=== PATIENT | female | born 1955 | race Caucasian/White ===

== ENCOUNTER 2017-04-04 22:44 | Emergency (ER) | payer OTHER ==
[~2017-04-04] VITALS: Ht 152.4 cm; Wt 74.4 kg
[~2017-04-04 22:44] MED LIST: ACETAMINOPHEN; ADVAIR 2501 DISK W/D INH; ALBUTEROL17 GM; ALBUTEROL17 GM INH; AMARYL PO; AMBIEN10 MG PO; AMITIZA24 MCG PO; ASPIRIN81 MG PEG; ATENOLOL PO; ATENOLOL50 MG PO; ATIVAN PO; ATIVAN0.5 M1 PO; AVALOX; AVELOX400 MG PO; BENADRYL PO; BENADRYL25 M1 PO; BENADRYL50 MG/M1 PEG; BENZTROPINE PEG; CLEOCIN PO; CLOTRIMAZOLE TROCHE PO; COLISTIMETHATE150 M1 IV; CYANOCOBAL1000 MCG/M INJ; CYMBALTA PO; DIAZEPAM PO; DILAUDID; DILAUDID PAIN PUMP; DOPAMINE; DOXYCYCLINE MO100 MG PO; DURAGESIC1 EACH TD; ERYTHROCIN STE500 M1 PO; FERROUS SULFATE PO; FLEXERIL10 M1 PO; FLONASE 0.05% N16 GM; FLOVENT DISKU250 MCG; GABAPENTIN300 MG/6 M PEG; HALOPERIDOL2 MG PEG; HEPARIN SO5000 UNIT3 IJ; HYCODAN60 ML 5MG/ DOB; HYDROCODON-ACE1 EAC5 PO; IPRATR-ALBUTEROL3 ML IH; IRON1 TA1 PO; IRON325 ( 651 PO; KETEK400 MG PO; KLONOPIN PO; LACRI-LUBE NP OI1 UD; LASIX PO; LEVAQUIN PO; LORAZEPAM1 MG PEG; LORTAB 7.5-5001 TAB PO; LOTREL 5-20 MG1 CAP PO; LOTREL PO; MAPAP650 MG/20. PEG; MEDROL4 MG PO; MEDROL4 MG/DOSE- PO; MERREM500 MG IV; METOPROLOL SUCC25 MG PEG; MS CONTIN PO; NASONEX17 GM; NORCO 10-325 TA1 TAB PO; NORCO 10/325 TA1 TAB PO; NORCO 7.5/325 T1 TAB PO; NORCO1 TAB 10/3 DOB; NORCO1 TAB 10/3 PO; NOREPINEPHRINE; ONDANSETRON4 MG/5 ML PEG; OPANA ER30 MG PO; OPANA PO; OXAZEPAM PO; OXYGEN INH; PANTOPRAZOLE SO40 MG PEG; PAXIL; PAXIL PO; PAXIL10 MG PO; PAXIL10 MG/5 ML PEG; PAXIL40 MG PO; PERFOROMIS20 MCG/2 M; PHENERGAN PO; PHENERGAN25 MG PO; POTASSIUM CHLO10 MEQ PO; POTASSIUM20 MEQ/11 PEG; PREDNISONE PO; PROAIR HFA8.5 GM IH; RISPERDAL1 M1 PO; ROBAXIN PO; SERAX30 MG PO; SINGULAIR; SODIUM CHLORID100 ML IV; SYMBICORT INH; TENORMIN25 M1 PO; TENORMIN50 MG PO; TUSSIN MAX15 MG/5 M1 PO; VANCOMYCIN1.25 GM/21 IV; VITAMIN D1000 UNI1 PO; ZITHROMAX PO; [UNRECOGNIZED DRUG - CODE]; [UNRECOGNIZED DRUG - OTHER] PEG; [UNRECOGNIZED DRUG - OTHER] PO; [UNRECOGNIZED DRUG - OTHER] PO; [UNRECOGNIZED DRUG - REMARK]
[2017-04-05 01:31] LABS: BASOPHIL# 0.1 X10e3 (0-0.3); BASOPHIL% 0.8 % (0-2.5); DIFF IND NO; EOSINOPHIL# 0.4 X10e3 (0-0.7); EOSINOPHIL% 4.9 % (0.0-7.0); HEMATOCRIT 32.7 % (35.0-45.0); HEMOGLOBIN 11.4 gm/dL (12.0-16.0); LYMPHOCYTE# 1.9 X10e3 (1.0-3.5); LYMPHOCYTE% 25.4 % (17.0-45.0); MEAN CELL VOLUME 93.5 FL (83-96); MEAN CORPUSCULAR HEMOGLOBIN 32.6 PG (28-34); MEAN CORPUSCULAR HGB CONC 34.8 g/dL (30-36); MEAN PLATELET VOLUME 8.1 FL (6.5-11.5); MONOCYTE# 0.5 X10e3 (0-1.0); NEUTROPHIL# 4.8 X10e3 (1.5-7.1); NEUTROPHIL% 61.9 % (40-75); PLATELET COUNT 198 X10e3 (140-420); RED CELL DISTRIBUTION WIDTH 13.1 % (11.0-15.5); WHITE BLOOD COUNT 7.7 X10e3 (4.0-10.5)
[2017-04-05 01:49] LABS: BILIRUBIN, DIRECT 0.1 mg/dL (0.0-0.2); BILIRUBIN,INDIRECT 0.5 mg/dL (0.0-0.9); BILIRUBIN,TOTAL 0.6 mg/dL (0.2-2.0); BUN/CREATININE RATIO 18.23; CALCIUM SERUM 9.1 mg/dL (8.4-10.2); CREATININE SERUM 1.7 mg/dL (0.6-1.4); GLOM FILT RATE Estimated 32.2 mL/min (>60); POTASSIUM 4.3 mmol/L (3.5-5.1); PROTEIN TOTAL SERUM 6.7 g/dL (6.0-8.3)
[2017-04-05 03:13] LABS: BF CRYSTAL EXAM NO CRYSTALS SEEN; BF TOTAL NUCLEATED CELL COUNT 1510 CMM (0-100); BODY FLUID APPEARANCE BLOODY; BODY FLUID RBC 1641534 CMM; BODY FLUID SOURCE SYNOVIAL
== END 2017-04-05 03:49 | disposition home or self-care (01) ==
LOC: CED 22:44
PROVIDERS: Physician Assistant
DX: M25.462 Effusion, left knee (principal); Z88.2 Allergy status to sulfonamides; Z88.1 Allergy status to other antibiotic agents; Z88.8 Allergy status to other drugs, medicaments and biological substances; W06.XXXA Fall from bed, initial encounter; Y92.231 Patient bathroom in hospital as the place of occurrence of the external cause
CPT/HCPCS: 20610; 36415; 80048; 80076; 82945; 84157; 85025; 87070; 87205; 89051; 89060; 99284

== ENCOUNTER → 2017-04-17 | Outpatient (CLI) | payer OTHER ==
--- NOTE | ~2017-04-17 | CT101 ---
[facility] A Service of [facility] RADIOLOGY TEXT RESULTS PATIENT: RAMAKRISHNA LEE LOCATION: [facility] : 57 UNIT #: [id number] AGE: [address]: Mitul Lopez DMD SEX: F ORDER DR: [id number] [facility] [address] [place], [place] [address] [id number] O MR#: [id number] Acc #: [id number] NAME: RAMAKRISHNA LEE. : 1955 SEX: F STUDY DATE/TIME: 04/17/2017 9:07 UNIT: [facility] ROOM: STUDY DESCRIPTION: CT Maxillofacial Area Wo Cont Attending Physician: Mitul Lopez D.M.D. Referring Physician: Mitul Lopez D.M.D. Ordering Physician: Mitul Lopez D.M.D. Primary Care Physician: Tien Martinez M.D. MEDICAL IMAGING REPORT This report is preliminary unless electronic signature is present EXAM CT Maxillofacial Area Without Contrast HISTORY Five-year history of worsening bilateral tooth pain. TECHNIQUE Axial unenhanced maxillofacial CT with multiplanar reformats. This CT exam was performed with one or more of the following radiation dose reduction techniques: automatic exposure control, adjustment of mA and/or kV according to patient size, and iterative reconstruction. FINDINGS In the mandible, there are a few remaining teeth, and each are involved with dental caries but there are no periapical lucencies or erosions. In the maxilla, there are a few remaining teeth, and multiple dental caries, and only small periapical lucencies surrounding the remaining root of the right maxillary first premolar but no substantial periapical erosions. The other soft tissues are unremarkable. IMPRESSION Few remaining teeth and those that remain are mostly involved with dental caries, better assessed on physical exam and dental radiography. No substantial periapical lucencies involving the tooth and teeth fragments. Slight lucency around the root of the remaining fragment of the right maxillary first premolar. [facility] A Service of [facility] RADIOLOGY TEXT RESULTS PATIENT: RAMAKRISHNA LEE LOCATION: [facility] : 57 UNIT #: [id number] AGE: [address]: Mitul Lopez DMD SEX: F ORDER DR: Dictated by... Sp Medellin M.D. THIS IS AN ELECTRONICALLY VERIFIED REPORT Sp Medellin M.D. at 04/23/2017 5:05 PM TEV/pcl TD: 04/17/2017 21:34 JOB #: [id number] MEDICAL IMAGING REPORT Page 1 of 1 COPY
== END | disposition home or self-care (01) ==
LOC: CCAT 08:44
DX: K12.2 Cellulitis and abscess of mouth (principal); K02.9 Dental caries, unspecified
CPT/HCPCS: 70486